=== PATIENT | female | born 1985 | race American Indian/Alaskan Native ===

== ENCOUNTER 2016-06-09 22:16 | Emergency (ER) | payer MEDICAID ==
[2016-06-09 23:33] LABS: Basophils % (Auto) 0.5 % (0.0-1.8); Mean Corpuscular HGB Conc 30 % (30-34); Mean Corpuscular Volume 74 fl (79-97); Platelet Count 152 K/mm3 (140-440); Red Blood Count 4.56 M/mm3 (3.65-5.03); Red Cell Distribution Width 15.6 % (13.2-15.2); White Blood Count 5.3 K/mm3 (4.5-11.0)
[2016-06-09 23:35] LABS: Hematocrit 33.9 % (30.3-42.9); Hemoglobin 10.2 gm/dl (10.1-14.3); Mean Corpuscular Hemoglobin 22 pg (28-32)
[2016-06-09 23:54] LABS: Anion Gap 22 mmol/L; BUN/Creatinine Ratio 16.25; Blood Urea Nitrogen 13 mg/dL (7-17); Calcium 9.5 mg/dL (8.4-10.2); Carbon Dioxide 23 mmol/L (22-30); Chloride 93.2 mmol/L (98-107); Glucose 478 mg/dL (65-100); Potassium 4.7 mmol/L (3.6-5.0); Sodium 133 mmol/L (137-145)
[2016-06-09 23:58] LABS: B-Hydroxybutyrate 0.9 mg/dL (0.2-2.8)
[2016-06-10 01:10] LABS: Bilirubin,Urine NEG (Negative); Blood,Urine NEG (Negative); Ketones,Urine NEG (Negative); Leukocyte Esterase,Urine NEG (Negative); Mucus,Urine FEW /HPF; Nitrite,Urine NEG (Negative); Protein,Urine <15 mg/dL mg/dL (Negative); Urobilinogen,Urine < 2.0 mg/dL (<2.0); WBC,Urine < 1.0 /HPF (0.0-6.0)
[2016-06-10] MEDS: BENADRYL PO ONE (07:30)
[2016-06-10] MEDS: ZOFRAN IV ONE (07:31)
[2016-06-10] MEDS: DILAUDID IV ONE ×2 (07:32→12:30)
[2016-06-10] MEDS: NACL 0.9% 1000 ML IV ONE (07:34)
--- NOTE | 2016-06-10 08:05 | Emergency Department Report ---
HPI - General Chief Complaint: Abdominal Pain Time Seen by Provider: 06/10/16 06:49 - HPI HPI: Chief complaint: Nausea vomiting diarrhea elevated sugar HPI: Patient is a 30-year-old insulin-dependent diabetic with previous history of DKA several months ago and recurrent nausea vomiting diarrhea and abdominal pain. Patient was here in March last year with similar complaints 2 today. States she's had nausea vomiting and diarrhea for the last 3 days. States every time she tries to eat something she vomits and initially she had multiple episodes of diarrhea but has slowed to 2 or 3 times a day. Patient denies fever but states she's had a productive cough with green sputum times one month. Patient denies history of smoking or hypertension. Patient takes 30 units of Lantus every night and then a sliding scale during the day. Patient states her last dose was last night of the Lantus 30 units. Mode of arrival: [private car] Source: [Patient] [old chart] Began: 3 days ago Duration: 3 days Context: Also has a history of hyperthyroidism controlled with methimazole. Patient has had kidney stones in the past requiring nephrostomy tube placement. Patient states she has not had any trouble with this for over a year. 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 - Surgical History Past Surgical History?: Yes Hx Cholecystectomy: Yes Additional Surgical History: X 3, nephrostomy tubes for hydronephrosis last was May 2014 - Social History Smoking Status: Never Smoker Substance Use Type: None - Medications Home Medications: Home Medications Medication Instructions Recorded Confirmed Last Taken Type Methimazole [Tapazole] 10 mg PO BID #60 tablet 01/28/16 06/10/16 1 Day Ago Rx 10 Insulin Lispro [HumaLOG VIAL] 12 units SQ TID #1 03/27/16 06/10/16 1 Day Ago Rx 8 Enoxaparin [Lovenox] 90 mg SUB-Q BID 06/10/16 06/10/16 Unknown History HYDROcodone/APAP 5-325 [[place] 1 each PO Q6HR PRN #7 tablet 06/10/16 Unknown Rx 5/325] Insulin Glargine [Lantus VIAL] 30 unit SUB-Q QHS 06/10/16 06/10/16 Unknown History Ondansetron [Zofran Odt] 4 mg PO Q4H PRN #10 tab.rapdis 06/10/16 Unknown Rx ED Review of Systems ROS: Stated complaint: CHEST SORENESS/COLD SX/COUGH Other details as noted in HPI ROS Constitutional: No fever ENT: No uri symptoms Cardiovascular: No chest pain Respiratory: No sob GI: See HPI : No dysuria frequency or urgency, Skin: No rash Neuro: No focal weakness or numbness Psych: No depression Paul/lymph: No edema Physical Exam - Physical Exam Vital Signs: Vital Signs 06/09/16 06/10/16 06/10/16 22:43 05:41 07:15 Temperature 98.5 F Pulse Rate 97 H 82 88 Respiratory 20 20 16 Rate Blood Pressure 139/97 129/96 Blood Pressure 128/77 [Left] O2 Sat by Pulse 100 100 100 Oximetry 06/10/16 07:32 Temperature Pulse Rate Respiratory 16 Rate Blood Pressure Blood Pressure [Left] O2 Sat by Pulse Oximetry Physical Exam: GENERAL: The patient is well-developed well-nourished . HEENT: Normocephalic. Atraumatic. Extraocular motions are intact. Patient has moist mucous membranes. NECK: Supple. No meningitic signs are noted. There is no adenopathy noted. CHEST/LUNGS: Clear to auscultation. There is no respiratory distress noted. HEART/CARDIOVASCULAR: Regular. There is no tachycardia. There is no gallop rub or murmur. ABDOMEN: Abdomen is soft, diffuse tenderness without rebound or guarding. Right flank tenderness. Patient has normal bowel sounds. There is no abdominal distention. SKIN: There is no rash. There is no edema. There is no diaphoresis. NEURO: The patient is awake, alert, and oriented. The patient is cooperative. The patient has no focal neurologic deficits. The patient has normal speech. MUSCULOSKELETAL: There is no tenderness or deformity. There is no limitation range of motion. There is no evidence of acute injury. 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 06/10/16 11:[address] Virgen from vascular surgery who is familiar with this patient. He states the most appropriate treatment is to continue anticoagulation as the risk of placing a suprarenal IVC filter outweighs the risk of a pulmonary embolus. Patient was strongly encouraged to not miss any doses of her Lovenox. 06/10/16 11:48 Patient was given Zofran and Dilaudid with significant improvement. ED Medical Decision Making - Lab Data Result diagrams: 06/09/16 23:11 06/09/16 23:11 Laboratory Tests 06/09/16 06/09/16 06/09/16 23:11 23:11 Unknown VBG pH 7.313 L POC Glucose Urine Protein <15 mg/dl Urine Glucose (UA) >=500 Urine HCG, Qual Negative Ketones 0.9 06/10/16 05:47 VBG pH POC Glucose > 500 H Urine Protein Urine Glucose (UA) Urine HCG, Qual Ketones - Radiology Data Radiology results: report reviewed (CT of the abdomen shows no QT changes. 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 Radiologist thinks there is concern for potential dislodgment resulting in a pulmonary embolus.) Critical care attestation.: If time is entered above; I have spent that time in minutes in the direct care of this critically ill patient, excluding procedure time. ED Disposition Clinical Impression: Hyperglycemia, Gastroenteritis, Renal vein thrombosis Disposition: DISCHARGED TO HOME OR SELFCARE Is pt being admited?: No Does the pt Need Aspirin: No Instructions: Abdominal Pain (ED), Acute Nausea and Vomiting (ED) Prescriptions: HYDROcodone/APAP 5-325 [[place] 5/325] 1 each PO Q6HR PRN #7 tablet PRN Reason: Pain Ondansetron [Zofran Odt] 4 mg PO Q4H PRN #10 tab.rapdis PRN Reason: Nausea And Vomiting Referrals: PRIMARY CARE, [Primary Care Provider] - 3-5 Days [facility] [Provider Group] - 3-5 Days (Follow-up with gastroenterology for further evaluation) Time of Disposition: 11:49
--- NOTE | 2016-06-10 09:46 | Cat Scan Report ---
CT ABDOMEN AND PELVIS WITH CONTRAST History: Abdominal pain. Technique: Helical CT following IV contrast. Sagittal and coronal reformatted images. Findings: Multiple previous exams were reviewed dating back to 02/28/16. Heart size is normal. The visualized lung bases are clear. Normal liver, pancreas, adrenal glands, spleen, bowel loops and appendix. The bowel loops are normal caliber and wall thickness. There is mild anterior rotation and inferior migration of the right kidney. The kidneys and collecting systems are within normal limits otherwise. Normal bladder. Cholecystectomy changes are noted. No biliary dilatation. A left renal vein stent is in position. There appears to be a thrombus which is adherent to the stent and extends superiorly in the intrahepatic IVC. This is unchanged since previous exams dating back to 02/29/16. Impression: No acute inflammatory process is appreciated. Thrombus adherent to the left renal vein stent which extends into the intrahepatic IVC as outlined above. This is unchanged. Given these findings, I feel this patient is at risk for pulmonary embolus. Please correlate with the images. Slight right renal ectopia.
[2016-06-10] MEDS ORDERED: DILAUDID ONE (12:24)
[2016-06-10 12:38] VITALS: BP 130/86
== END 2016-06-10 11:51 | disposition home or self-care (01) ==
LOC: ED 22:16
DX: E11.65 Type 2 diabetes mellitus with hyperglycemia (principal); K52.9 Noninfective gastroenteritis and colitis, unspecified; I82.3 Embolism and thrombosis of renal vein; Z90.49 Acquired absence of other specified parts of digestive tract
CPT/HCPCS: 36415; 74177; 80048; 81001; 81025; 82010; 82805; 82962; 85025; 96361; 96374; 96375; 96376; 99285; J1170; J2405; J7030; Q9967; J1815

== ENCOUNTER 2016-08-24 20:26 | Emergency (ER) | payer MEDICAID ==
[2016-08-24 21:36] LABS: Red Blood Count 5.19 M/mm3 (3.65-5.03); White Blood Count 6.7 K/mm3 (4.5-11.0)
[2016-08-24 21:37] LABS: Basophils % (Auto) 0.6 % (0.0-1.8); Eosinophils % (Auto) 0.7 % (0.0-4.3); Hematocrit 38.6 % (30.3-42.9); Hemoglobin 11.8 gm/dl (10.1-14.3); Mean Corpuscular HGB Conc 31 % (30-34); Mean Corpuscular Hemoglobin 23 pg (28-32); Mean Corpuscular Volume 74 fl (79-97); Platelet Count 181 K/mm3 (140-440); Red Cell Distribution Width 16.1 % (13.2-15.2)
[2016-08-24 21:44] LABS: Anion Gap 23 mmol/L; BUN/Creatinine Ratio 19.09; Blood Urea Nitrogen 21 mg/dL (7-17); Calcium 9.5 mg/dL (8.4-10.2); Carbon Dioxide 19 mmol/L (22-30); Chloride 90.6 mmol/L (98-107); Sodium 128 mmol/L (137-145)
[2016-08-24 22:07] LABS: Glucose 538 mg/dL (65-100)
[2016-08-24] MEDS ORDERED: NACL 0.9% 1000 ML 1,000 ML ONE (22:18)
[2016-08-24] MEDS ORDERED: DILAUDID IV ONE (23:45)
[2016-08-24] MEDS ORDERED: ZOFRAN IV ONE (23:45)
[2016-08-24] MEDS ORDERED: ERYTHROMYCIN OPHTH OINT OU ONE (23:45)
[2016-08-24] MEDS ORDERED: NACL 0.9% 1000 ML 2,000 ML IV ONE (23:47)
--- NOTE | 2016-08-24 23:47 | Emergency Department Report ---
ED Abdominal Pain HPI - General Chief Complaint: Abdominal Pain Stated Complaint: N/V/D/R EYE BLURRED VISION/WEAKNESS Time Seen by Provider: 08/24/16 23:36 Source: patient Mode of arrival: Ambulatory Limitations: No Limitations - History of Present Illness Initial Comments: This is a 30-year-old female who reports 2 day history of right-sided abdominal pain. She states it radiates somewhat to her groin. She does get increased pains with urination as well. She denies any fevers us and with this. She does report decreased appetite. No vomiting has had some nausea. No diarrhea or constipation is reported. States that she's also on the same time. Had difficulty with her right eye with redness pain and tearing and itching sensation. No trauma is reported to the right eye. She's otherwise felt well. She denies any history of allergies. She denies nasal congestion or cough. Patient does endorse having history of kidney stones in the past. States her pain feels somewhat like a kidney stone. She denies . She denies any vaginal discharge. No prior abdominal surgeries is reported. Severity scale (0 -10): 10 Improves With: nothing Worsens With: nothing - Related Data Home Medications Medication Instructions Recorded Confirmed Last Taken Enoxaparin [Lovenox] 90 mg SUB-Q BID 06/10/16 06/10/16 Unknown Insulin Glargine [Lantus VIAL] 30 unit SUB-Q QHS 06/10/16 06/10/16 Unknown Previous Rx's Medication Instructions Recorded Last Taken Type Methimazole [Tapazole] 10 mg PO BID #60 tablet 01/28/16 1 Day Ago Rx 10 Insulin Lispro [HumaLOG VIAL] 12 units SQ TID #1 03/27/16 1 Day Ago Rx 8 HYDROcodone/APAP 5-325 [[place] 1 each PO Q6HR PRN #7 tablet 06/10/16 Unknown Rx 5/325] Ondansetron [Zofran Odt] 4 mg PO Q4H PRN #10 tab.rapdis 06/10/16 Unknown Rx Erythromycin [Erythromycin Ophth 10 applic OP Q4HR #1 tube 08/25/16 Unknown Rx Oint] oxyCODONE /ACETAMINOPHEN [Percocet 1 tab PO Q4HR PRN #20 tab 08/25/16 Unknown Rx 5/325] Allergies Allergy/AdvReac Type Severity Reaction Status Date / Time ketorolac tromethamine Allergy Severe Hives Verified 08/24/16 21:06 [From Toradol] morphine Allergy Severe Hives Verified 08/24/16 21:06 ED Review of Systems ROS: Stated complaint: N/V/D/R EYE BLURRED VISION/WEAKNESS Other details as noted in HPI Comment: All other systems reviewed and negative Constitutional: denies: chills, fever Eyes: eye pain. denies: eye discharge, vision change ENT: denies: ear pain, throat pain Respiratory: denies: cough, shortness of breath, wheezing Cardiovascular: denies: chest pain, palpitations Endocrine: no symptoms reported Gastrointestinal: abdominal pain, nausea. denies: vomiting, diarrhea, constipation, hematemesis, hematochezia Genitourinary: dysuria. 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 - Surgical History Past Surgical History?: Yes Hx Cholecystectomy: Yes Additional Surgical History: X 3, nephrostomy tubes for hydronephrosis last was May 2014 - Social History Smoking Status: Never Smoker Substance Use Type: None - Medications Home Medications: Home Medications Medication Instructions Recorded Confirmed Last Taken Type Methimazole [Tapazole] 10 mg PO BID #60 tablet 01/28/16 06/10/16 1 Day Ago Rx 10 Insulin Lispro [HumaLOG VIAL] 12 units SQ TID #1 03/27/16 06/10/16 1 Day Ago Rx 8 Enoxaparin [Lovenox] 90 mg SUB-Q BID 06/10/16 06/10/16 Unknown History HYDROcodone/APAP 5-325 [[place] 1 each PO Q6HR PRN #7 tablet 06/10/16 Unknown Rx 5/325] Insulin Glargine [Lantus VIAL] 30 unit SUB-Q QHS 06/10/16 06/10/16 Unknown History Ondansetron [Zofran Odt] 4 mg PO Q4H PRN #10 tab.rapdis 06/10/16 Unknown Rx Erythromycin [Erythromycin Ophth 10 applic OP Q4HR #1 tube 08/25/16 Unknown Rx Oint] oxyCODONE /ACETAMINOPHEN [Percocet 1 tab PO Q4HR PRN #20 tab 08/25/16 Unknown Rx 5/325] ED Physical Exam - General Limitations: No Limitations General appearance: alert, in no apparent distress - Head Head exam: Present: atraumatic, normocephalic - Eye Eye exam: Present: PERRL, EOMI, other (right eye with significant injection. Conjunctivae with erythema as well. Pupils are reactive to light bilaterally. There is some clear drainage noted from the right eye. Left eye is unremarkable.) Pupils: Present: other (no periorbital erythema.) - ENT ENT exam: Present: normal exam, normal orophraynx, mucous membranes moist - Neck Neck exam: Present: normal inspection, full ROM. Absent: tenderness, meningismus, lymphadenopathy - Respiratory Respiratory exam: Present: normal lung sounds bilaterally. Absent: respiratory distress, wheezes, rales - Cardiovascular Cardiovascular Exam: Present: regular rate, normal rhythm. Absent: systolic murmur, diastolic murmur, rubs, gallop - GI/Abdominal GI/Abdominal exam: Present: soft, tenderness (right upper and lower abdomen and somewhat a diffuse pattern. Minimal left-sided abdominal tenderness however.), guarding (on right mid abdomen.), normal bowel sounds. Absent: rebound, organomegaly, pulsatile mass - Extremities Exam Extremities exam: Present: normal inspection, full ROM. Absent: tenderness, pedal edema - Back Exam Back exam: Present: normal inspection, full ROM. Absent: CVA tenderness (R), CVA tenderness (L) - Neurological Exam Neurological exam: Present: alert, oriented X3 - Psychiatric Psychiatric exam: Present: normal affect, normal mood - Skin Skin exam: Present: warm, dry, intact, normal color. Absent: rash ED Course Vital Signs 08/24/16 08/25/16 08/25/16 20:44 00:00 00:29 Temperature 98.5 F Pulse Rate 117 H Respiratory 18 18 18 Rate Blood Pressure 117/90 Blood Pressure 117/90 [Left] O2 Sat by Pulse 100 98 Oximetry 08/25/16 05:01 Temperature 98.8 F Pulse Rate 77 Respiratory 18 Rate Blood Pressure Blood Pressure 119/82 [Left] O2 Sat by Pulse 99 Oximetry - Reevaluation(s) Reevaluation #1: 08/25/16 01:41 I have reviewed the patient's lab studies. They are essentially unremarkable. Her sugars are noted to be quite elevated. She's been given IV fluids as well as insulin for this. I am a bit perplexed by the etiology of her abdominal pain. Her urine does not show root red blood cells. Her presentation doesn't seem consistent with kidney stone either. I'm inclined to get a CT study with contrast to rule out other pathology as well. Her labs are all noted to be normal. Reevaluation #2: 08/25/16 05:58 CT was performed. I was surprised to see the left renal vein thrombosis extending to the IVC. I did note as well that she's had numerous CTs as well as numerous evaluations studies regarding her left renal thrombosis and her kidneys in general. Her creatinine in the pew and appropriate here. There is a small amount of proteinuria. This does appear to be all chronic in nature. I did request and the patient regarding these findings and she indicates that she is currently on Lovenox. She was initially on liquids but her insurance will cover it. The left renal thrombosis on the left and her pain is on the right. I do not feel the CT gives an answer as far as the etiology of her discomfort. Frankly am a little perplexed about causing her pain as well. Urinalysis is unremarkable in general. No kidney stones were noted on examination. Patient still does have some mild tenderness to palpation on the right side. She did require a lot of 3 while here. She was here for several hours however. I did have a long conversation with the patient in regards to her workup and however not specifically finding an etiology for her discomforts. I do feel she is safe for home and given my lack of findings and my low suspicion for surgical pathology at this time. I did encourage her to follow up with her primary doctor for continued evaluation and consideration. I did focus on his sugars as well. Patient was given total of 2 L normal saline as well as insulin 1. As it come down to the appropriate range with these interventions. Do not suspect DKA. She appears very comfortable and breathing very comfortably as well. CO2 is normal as well. 08/25/16 06:00 ED Medical Decision Making - Lab Data Result diagrams: 08/24/16 21:21 08/24/16 21:21 Critical care attestation.: If time is entered above; I have spent that time in minutes in the direct care of this critically ill patient, excluding procedure time. ED Disposition Clinical Impression: Thrombosis of left renal vein Abdominal pain Qualifiers: Abdominal location: right lower quadrant Qualified Code(s): R10.31 - Right lower quadrant pain Conjunctivitis Qualifiers: Conjunctivitis type: acute Acute conjunctivitis type: unspecified Laterality: right Qualified Code(s): H10.31 - Unspecified acute conjunctivitis, right eye Disposition: DISCHARGED TO HOME OR SELFCARE Is pt being admited?: No Does the pt Need Aspirin: No Condition: Stable Instructions: Conjunctivitis (ED) Additional Instructions: Follow with your doctor for further evaluation and continued care regarding her renal vein thrombosis. Continue with her Lovenox injections. Take pain medication as needed. Be aware the pain medication may make you constipated. Eat a bland diet. Use the erythromycin ointment small amount in the eye every 4 hours while awake. Prescriptions: Erythromycin [Erythromycin Ophth Oint] 10 applic OP Q4HR #1 tube oxyCODONE /ACETAMINOPHEN [Percocet 5/325] 1 tab PO Q4HR PRN #20 tab PRN Reason: Pain Referrals: PRIMARY CARE, [Primary Care Provider] - 3-5 Days Forms: Work/School Release Form(ED) Time of Disposition: 04:59
[2016-08-24] MEDS ORDERED: TETRACAINE 0.5% OU PRN (23:50)
[2016-08-25 00:42] LABS: Albumin 4.4 g/dL (3.9-5)
[2016-08-25 00:58] LABS: Alanine Aminotransferase 6 units/L (7-56); Albumin/Globulin Ratio 1.1 %; Alkaline Phosphatase 89 units/L (35-129); Bilirubin,Direct < 0.2 mg/dL (0-0.2); Bilirubin,Indirect 0.4 mg/dL; Lipase 11 units/L (13-60); Total Protein 8.3 g/dL (6.3-8.2)
[2016-08-25 01:32] LABS: Bilirubin,Urine NEG (Negative); Blood,Urine SM (Negative); Ketones,Urine 20 mg/dL (Negative); Leukocyte Esterase,Urine TR (Negative); Mucus,Urine FEW /HPF; Nitrite,Urine NEG (Negative); Urobilinogen,Urine < 2.0 mg/dL (<2.0)
[2016-08-25] MEDS ORDERED: NACL ONE (02:44)
[2016-08-25] MEDS ORDERED: DILAUDID ONE (04:26)
--- NOTE | 2016-08-25 04:29 | Cat Scan Report ---
FINAL REPORT PROCEDURE: CT ABDOMEN PELVIS W CON TECHNIQUE: Computerized axial tomography of the abdomen and pelvis was performed after the IV injection of iodinated nonionic contrast. HISTORY: R sided abd pains COMPARISON: 06/10/2016 FINDINGS: Visualized lower thorax: No significant abnormality. Liver: Normal size and attenuation. Spleen: There is a partially calcified low-density mass in the spleen unchanged from prior study.. Gallbladder and biliary system: There has been a cholecystectomy. The bile ducts are normal in caliber.. Pancreas: Normal. Adrenals: Normal. Kidneys: There is malrotation of the right kidney. There are left intrarenal vascular calcifications. There are no kidney stones. There is no hydronephrosis. There are no kidney stones. There is no hydronephrosis. 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 These are chronic changes.. GI tract: There is no bowel obstruction, colitis or enteritis. The appendix is normal. There is focal thickening of the stomach antrum which is nonspecific. This could be contraction or gastritis.. Lymph nodes and mesentery: Normal. Vasculature: The aorta is normal in caliber.. Bladder: Normal. Reproductive organs: The uterus and ovaries are unremarkable.. Peritoneum: There is no ascites or free air, abscess or adenopathy.. Musculoskeletal structures: No significant abnormality. Other: There is a small ventral hernia containing fat only.. 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 There has been a cholecystectomy. The bile ducts are normal in caliber.. There is malrotation of the right kidney. There are left intrarenal vascular calcifications. There are no kidney stones. There is no hydronephrosis. There are no kidney stones. There is no hydronephrosis. 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 These are chronic changes.. There is no bowel obstruction, colitis or enteritis. The appendix is normal. There is focal thickening of the stomach antrum which is nonspecific. This could be contraction or gastritis.. There is no ascites or free air, abscess or adenopathy.. There is a small ventral hernia containing fat only..
[2016-08-25] MEDS ORDERED: DILAUDID IV ONE (04:40)
[2016-08-25 05:02] VITALS: BP 119/82
[2016-08-30 00:54] LABS: B-Hydroxybutyrate 1.8 mmol/L (0.2 - 0.28)
== END 2016-08-25 05:22 | disposition home or self-care (01) ==
LOC: ED 20:26
DX: I82.3 Embolism and thrombosis of renal vein (principal); H10.31 Unspecified acute conjunctivitis, right eye; E11.9 Type 2 diabetes mellitus without complications; Z90.49 Acquired absence of other specified parts of digestive tract; Z79.4 Long term (current) use of insulin; Z88.6 Allergy status to analgesic agent
CPT/HCPCS: 36415; 74177; 80048; 80074; 81001; 81025; 82010; 82805; 82962; 83690; 85025; 96374; 96375; 96376; 99284; J1170; J2405; J7030; Q9967; J1815

== ENCOUNTER 2016-11-05 01:18 | Emergency (ER) | payer MEDICAID ==
[2016-11-05 01:48] LABS: Basophils % (Auto) 0.9 % (0.0-1.8); Eosinophils % (Auto) 2.5 % (0.0-4.3); Hematocrit 34.8 % (30.3-42.9); Hemoglobin 10.9 gm/dl (10.1-14.3); Mean Corpuscular HGB Conc 31 % (30-34); Mean Corpuscular Volume 74 fl (79-97); Platelet Count 193 K/mm3 (140-440); Red Blood Count 4.68 M/mm3 (3.65-5.03); Red Cell Distribution Width 15.6 % (13.2-15.2); White Blood Count 6.2 K/mm3 (4.5-11.0)
[2016-11-05 01:58] LABS: Mean Corpuscular Hemoglobin 23 pg (28-32)
[2016-11-05 02:13] LABS: Alanine Aminotransferase 7 units/L (7-56); Albumin 3.8 g/dL (3.9-5); Alkaline Phosphatase 57 units/L (35-129); Anion Gap 20 mmol/L; Blood Urea Nitrogen 19 mg/dL (7-17); Calcium 9.2 mg/dL (8.4-10.2); Carbon Dioxide 22 mmol/L (22-30); Chloride 92.7 mmol/L (98-107); Glucose 437 mg/dL (65-100); Potassium 4.4 mmol/L (3.6-5.0); Sodium 130 mmol/L (137-145); Total Protein 7.6 g/dL (6.3-8.2)
[2016-11-05 03:05] LABS: Bilirubin,Urine NEG (Negative); Blood,Urine NEG (Negative); Ketones,Urine NEG (Negative); Leukocyte Esterase,Urine NEG (Negative); Nitrite,Urine NEG (Negative); Protein,Urine <15 mg/dL mg/dL (Negative); Urobilinogen,Urine < 2.0 mg/dL (<2.0); WBC,Urine < 1.0 /HPF (0.0-6.0)
[2016-11-05] MEDS ORDERED: NACL 0.9% 1000 ML 1,000 ML IV ONE (08:13)
[2016-11-05] MEDS ORDERED: ZOFRAN IV ONE (08:13)
--- NOTE | 2016-11-05 08:16 | Emergency Department Report ---
HPI - General Chief Complaint: Abdominal Pain Time Seen by Provider: 11/05/16 08:00 - HPI HPI: This is a 31-year-old Afro-[place] female presents to the emergency department , dropped off by her father, with a one-week history of increased urination, nausea and vomiting, lower abdominal and lower back pain. She denies any problems with bowel movements, numbness or paresthesias or any neurological deficits. She tried some Tylenol for her discomfort without any relief. She denies any trauma. No recent travel or sick contacts at home. Her primary care physician is Dr. Jackson that she has not seen them regarding symptoms. She has a past nuchal history of insulin-dependent diabetes, DVT, kidney stones, hypothyroidism. She has a past surgical history of cholecystectomy, 3, and previous nephrostomy tubes for hydronephrosis. 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 - Surgical History Past Surgical History?: Yes Hx Cholecystectomy: Yes Additional Surgical History: X 3, nephrostomy tubes for hydronephrosis last was May 2014 - Social History Smoking Status: Never Smoker Substance Use Type: None - Medications Home Medications: Home Medications Medication Instructions Recorded Confirmed Last Taken Type Methimazole [Tapazole] 10 mg PO BID #60 tablet 01/28/16 06/10/16 1 Day Ago Rx 10 Insulin Lispro [HumaLOG VIAL] 12 units SQ TID #1 03/27/16 06/10/16 1 Day Ago Rx 8 Enoxaparin [Lovenox] 90 mg SUB-Q BID 06/10/16 06/10/16 Unknown History Insulin Glargine [Lantus VIAL] 30 unit SUB-Q QHS 06/10/16 06/10/16 Unknown History Erythromycin [Erythromycin Ophth 10 applic OP Q4HR #1 tube 08/25/16 Unknown Rx Oint] oxyCODONE /ACETAMINOPHEN [Percocet 1 tab PO Q4HR PRN #20 tab 08/25/16 Unknown Rx 5/325] HYDROcodone/APAP 5-325 [[place] 1 each PO Q6HR PRN #7 tablet 11/05/16 Unknown Rx 5-325 mg TAB] Ondansetron [Zofran Odt] 4 mg PO Q4H PRN #10 tab.rapdis 11/05/16 Unknown Rx ED Review of Systems ROS: Stated complaint: ABD PAIN/EMESIS Other details as noted in HPI Comment: All other systems reviewed and negative Constitutional: denies: chills, fever Eyes: denies: eye pain, eye discharge, vision change ENT: denies: ear pain, throat pain Respiratory: denies: cough, shortness of breath, wheezing Cardiovascular: denies: chest pain, palpitations Gastrointestinal: abdominal pain, nausea, vomiting Genitourinary: dysuria, frequency. denies: discharge Musculoskeletal: back pain. denies: arthralgia Skin: denies: rash, lesions Neurological: denies: headache, weakness, paresthesias Physical Exam - Physical Exam Vital Signs: Vital Signs 11/05/16 11/05/16 01:22 08:06 Temperature 98.9 F Pulse Rate 87 Respiratory 20 20 Rate Blood Pressure 125/87 O2 Sat by Pulse 100 100 Oximetry Physical Exam: GENERAL: The patient is well-developed well-nourished. HEENT: Normocephalic. Atraumatic. Extraocular motions are intact. Patient has moist mucous membranes. Pupils equal reactive to light bilaterally. NECK: Supple. Trachea is midline. CHEST/LUNGS: Clear to auscultation. There is no respiratory distress noted. HEART/CARDIOVASCULAR: Regular. There is no tachycardia. There is no gallop rub or murmur. ABDOMEN: Abdomen is soft. There is no tenderness to palpation of the abdomen. No guarding or rebound tenderness. No peritoneal signs. Patient has normal bowel sounds. There is no abdominal distention. SKIN: Skin is warm and dry. NEURO: The patient is awake, alert, and oriented. The patient is cooperative. The patient has no focal neurologic deficits. The patient has normal speech. Cranial nerves II through XII grossly intact. MUSCULOSKELETAL: There is no tenderness or deformity. There is no limitation range of motion. There is no evidence of acute injury. BACK: No midline thoracic or lumbar tenderness to palpation or deformity. ED Course Vital Signs 11/05/16 11/05/16 01:22 08:06 Temperature 98.9 F Pulse Rate 87 Respiratory 20 20 Rate Blood Pressure 125/87 O2 Sat by Pulse 100 100 Oximetry ED Medical Decision Making - Lab Data Result diagrams: 11/05/16 01:28 11/05/16 01:28 - Radiology Data Radiology results: report reviewed, image reviewed interpreted by me: Abdominal x-ray shows nonspecific nonobstructive bowel gas. 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 Transvaginal/pelvic ultrasound does not show any signs of torsion. There is a small left ovarian cyst. - Medical Decision Making 31-year-old female presents the emergency department with a one-week history of nausea, vomiting, back pain lower abdominal and pelvic discomfort and increased urination. Urinalysis does not show any urinary tract infection and the patient is not . Blood work shows hyperglycemia with some pseudohyponatremia. However the patient does not appear to have diabetic ketoacidosis or HHNK. She was given a liter of IV fluid and some insulin and her blood sugar came down to 240. The rest the patient's labs were unremarkable for any etiology of the patient's symptoms and she does not appear to have any significant dehydration. She was given a dose of Zofran and pain medication. Abdominal x-ray shows nonspecific nonobstructive bowel gas. Renal ultrasound was done second or 2 history of kidney stones and some back and abdominal pain but there is no sign of any ureter stones only a questionable right intrarenal stone. Otherwise as was a normal examination. Patient still had some lower abdominal and/or pelvic discomfort so a transvaginal/pelvic ultrasound was also done to rule out torsion. There was no torsion and there is a small left ovarian cyst. She appears safer being discharged home at this time. Vital signs stable throughout ED course. She was given a prescription for Zofran and pain medication and encouraged to follow up with her primary care physician. She will return to the ER with any worsening of her symptoms or any acute distress. Despite the patient's back pain, there was no midline tenderness, step-off or deformity. There is no focal, motor or sensory deficits in her cranial nerves are intact. She appears low suspicion for any of the emergent back conditions such as cauda equina, cord compression syndrome or epidural abscess. - Differential Diagnosis muscle spasm, , UTI, fibroids, cyst Critical Care Time: No Critical care attestation.: If time is entered above; I have spent that time in minutes in the direct care of this critically ill patient, excluding procedure time. ED Disposition Clinical Impression: Pelvic pain Back pain Qualifiers: Back pain location: low back pain Chronicity: unspecified Back pain laterality : bilateral Sciatica presence: without sciatica Qualified Code(s): M54.5 - Low back pain Nausea & vomiting Qualifiers: Vomiting type: unspecified Vomiting Intractability: non-intractable Qualified Code(s): R11.2 - Nausea with vomiting, unspecified Disposition: TO HOME OR SELFCARE Is pt being admited?: No Condition: Stable Instructions: Acute Nausea and Vomiting (ED), Abdominal Pain (ED), Back Pain ( ED) Additional Instructions: These follow-up with your primary care physician in the next few days. Return to the emergency department with any worsening of your symptoms or any acute distress. You've been prescribed a medication that is sedating. Therefore this medication cannot be mixed with alcohol, or taken prior to driving, working, or being responsible for children. Prescriptions: HYDROcodone/APAP 5-325 [[place] 5-325 mg TAB] 1 each PO Q6HR PRN #7 tablet PRN Reason: Pain Ondansetron [Zofran Odt] 4 mg PO Q4H PRN #10 tab.rapdis PRN Reason: Nausea And Vomiting Referrals: PRIMARY CARE, [Primary Care Provider] - 3-5 Days Time of Disposition: 12:28
--- NOTE | 2016-11-05 08:45 | XRay Report ---
Abdomen 2 views: History: Abdominal pain. Findings: A fluid level in stomach. No distention of small and large bowel. No wall thickening. Stool in colon. No radiopaque calculus or abnormal calcification. Impression Essentially negative abdomen.
[2016-11-05] MEDS ORDERED: DILAUDID IV ONE ×2 (08:54→11:25)
--- NOTE | 2016-11-05 09:29 | Ultrasound Report ---
Renal ultrasound: Back pain; history of hydronephrosis and stone. Examination is technically somewhat compromised. The right renal length is approximately 9.1 cm. A couple of central echodensities are noted these may represent calculi but there is no shadowing and no hydronephrosis. No renal mass noted. The left renal length is approximately 9.8 cm. No renal mass and no calculus. No hydronephrosis. Imaging of the urinary bladder is grossly unremarkable. Imaging of the IVC demonstrates a filling defect consistent with nonobstructing thrombus. This has been present since at least the CT scan on August 25 where it was noted to emanate from left renal vein. Impressions: 1. Questionable nonobstructing right renal calculus. 2. 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
--- NOTE | 2016-11-05 11:51 | Ultrasound Report ---
Pelvic ultrasound: Pelvic pain. Endovaginal and transabdominal imaging demonstrates an anteverted uterus measuring 4.4 x 5.4 x 9.5 cm. The transverse images suggest a bicornuate uterus. The myometrium is homogeneous. The left endometrium measures 4.2 mm in thickness in the right endometrium measures 5.7 mm. Both both left and right endometrium appear unremarkable. The left ovary measures 3.3 cm and contains a 2.9 cm simple cyst. There is a normal Doppler flow pattern. The right ovary measures 2.4 cm containing a small follicle and normal Doppler flow pattern. No free fluid. Impressions: 1. Bicornuate uterus. 2. Left ovarian cyst.
[2016-11-05 12:06] VITALS: BP 124/82
== END 2016-11-05 12:06 | disposition home or self-care (01) ==
LOC: ED 01:18
DX: M54.5 Low back pain (principal); R11.2 Nausea with vomiting, unspecified; R10.2 Pelvic and perineal pain; E11.9 Type 2 diabetes mellitus without complications; Z86.718 Personal history of other venous thrombosis and embolism; Z79.4 Long term (current) use of insulin
CPT/HCPCS: 36415; 74020; 76770; 76830; 80053; 81001; 82805; 82962; 84703; 85025; 93975; 96361; 96374; 96375; 96376; 99284; J1170; J2405; J7030; J1815

== ENCOUNTER 2017-01-13 02:01 | Emergency (ER) | payer MEDICAID ==
[2017-01-13 03:10] LABS: Anion Gap 20 mmol/L; Blood Urea Nitrogen 12 mg/dL (7-17); Carbon Dioxide 20 mmol/L (22-30); Chloride 89.9 mmol/L (98-107); Potassium 4.9 mmol/L (3.6-5.0); Sodium 125 mmol/L (137-145)
[2017-01-13 03:43] LABS: Glucose 568 mg/dL (65-100)
[2017-01-13 03:46] LABS: Basophils % (Auto) 0.9 % (0.0-1.8); Eosinophils % (Auto) 1.6 % (0.0-4.3); Hematocrit 35.8 % (30.3-42.9); Hemoglobin 11.1 gm/dl (10.1-14.3); Mean Corpuscular HGB Conc 31 % (30-34); Mean Corpuscular Volume 75 fl (79-97); Red Blood Count 4.78 M/mm3 (3.65-5.03); Red Cell Distribution Width 15.8 % (13.2-15.2); White Blood Count 6.5 K/mm3 (4.5-11.0)
[2017-01-13 03:49] LABS: Mean Corpuscular Hemoglobin 23 pg (28-32)
[2017-01-13 04:00] LABS: Platelet Count 164 K/mm3 (140-440)
[2017-01-13 04:27] LABS: Bilirubin,Urine NEG (Negative); Blood,Urine SM (Negative); Ketones,Urine NEG (Negative); Leukocyte Esterase,Urine NEG (Negative); Mucus,Urine FEW /HPF; Nitrite,Urine NEG (Negative); Protein,Urine <15 mg/dL mg/dL (Negative); Urobilinogen,Urine < 2.0 mg/dL (<2.0)
[2017-01-13] MEDS ORDERED: NACL 0.9% 1000 ML 1,000 ML IV ONE ×2 (04:31→05:43)
[2017-01-13] MEDS ORDERED: DILAUDID IV ONE ×2 (04:33→06:44)
[2017-01-13] MEDS ORDERED: ZOFRAN IV ONE (04:34)
--- NOTE | 2017-01-13 07:04 | Emergency Department Report ---
HPI - General Chief Complaint: Hyperglycemia Time Seen by Provider: 01/13/17 04:04 - HPI HPI: 31-year-old female presents to the emergency department with complaint of a few days of some lower abdominal and low back pain. She also says that her blood sugar has been elevated despite the fact that she says she has been compliant with her insulin medication. Prior to the symptoms starting she has been dealing with about 1 week of upper respiratory type symptoms. Her primary care physician is a Dr. Jackson but she has not seen him regarding her symptoms. She also has a history of previous DVT, kidney stones, hypothyroidism. No recent travel or sick contacts at home. 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 - Surgical History Past Surgical History?: Yes Hx Cholecystectomy: Yes Additional Surgical History: X 3, nephrostomy tubes for hydronephrosis last was May 2014 - Social History Smoking Status: Never Smoker Substance Use Type: None - Medications Home Medications: Home Medications Medication Instructions Recorded Confirmed Last Taken Type Methimazole [Tapazole] 10 mg PO BID #60 tablet 01/28/16 06/10/16 1 Day Ago Rx 10 Insulin Lispro [HumaLOG VIAL] 12 units SQ TID #1 03/27/16 06/10/16 1 Day Ago Rx 8 Enoxaparin [Lovenox] 90 mg SUB-Q BID 06/10/16 06/10/16 Unknown History Insulin Glargine [Lantus VIAL] 30 unit SUB-Q QHS 06/10/16 06/10/16 Unknown History Erythromycin [Erythromycin Ophth 10 applic OP Q4HR #1 tube 08/25/16 Unknown Rx Oint] oxyCODONE /ACETAMINOPHEN [Percocet 1 tab PO Q4HR PRN #20 tab 08/25/16 Unknown Rx 5/325] Ondansetron [Zofran Odt] 4 mg PO Q4H PRN #10 tab.rapdis 11/05/16 Unknown Rx HYDROcodone/APAP 5-325 [[place] 1 each PO Q6HR PRN #7 tablet 01/13/17 Unknown Rx 5-325 mg TAB] ED Review of Systems ROS: Stated complaint: LOWER BACK & ABD PAIN, VOMITING, HEADACHE Other details as noted in HPI Comment: All other systems reviewed and negative Constitutional: denies: chills, fever Eyes: denies: eye pain, eye discharge, vision change ENT: denies: ear pain, throat pain Respiratory: denies: cough, shortness of breath, wheezing Cardiovascular: denies: chest pain, palpitations Gastrointestinal: abdominal pain. denies: nausea, diarrhea Genitourinary: denies: urgency, dysuria, discharge Musculoskeletal: back pain. denies: joint swelling, arthralgia Skin: denies: rash, lesions Neurological: denies: headache, weakness, paresthesias Physical Exam - Physical Exam Vital Signs: Vital Signs 01/13/17 01/13/17 01/13/17 02:07 04:35 04:47 Temperature 98.3 F 98.5 F Pulse Rate 99 H 84 Respiratory 20 20 20 Rate Blood Pressure 138/88 Blood Pressure 142/88 [Left] O2 Sat by Pulse 100 100 Oximetry 01/13/17 06:53 Temperature Pulse Rate Respiratory 18 Rate Blood Pressure Blood Pressure [Left] O2 Sat by Pulse Oximetry Physical Exam: GENERAL: The patient is well-developed well-nourished. HENT: Normocephalic. Atraumatic. Patient has moist mucous membranes. EYES: Extraocular motions are intact. Pupils equal reactive to light bilaterally. NECK: Supple. Trachea is midline. CHEST/LUNGS: Clear to auscultation. There is no respiratory distress noted. HEART/CARDIOVASCULAR: Regular. There is no tachycardia. There is no gallop rub or murmur. ABDOMEN: Abdomen is soft. Mild generalized tenderness to palpation of the abdomen. No guarding or rebound tenderness. Patient has normal bowel sounds. There is no abdominal distention. SKIN: Skin is warm and dry. NEURO: The patient is awake, alert, and oriented. The patient is cooperative. The patient has no focal neurologic deficits. The patient has normal speech. MUSCULOSKELETAL: There is no tenderness or deformity. There is no limitation range of motion. There is no evidence of acute injury. ED Course Vital Signs 01/13/17 01/13/17 01/13/17 02:07 04:35 04:47 Temperature 98.3 F 98.5 F Pulse Rate 99 H 84 Respiratory 20 20 20 Rate Blood Pressure 138/88 Blood Pressure 142/88 [Left] O2 Sat by Pulse 100 100 Oximetry 01/13/17 06:53 Temperature Pulse Rate Respiratory 18 Rate Blood Pressure Blood Pressure [Left] O2 Sat by Pulse Oximetry ED Medical Decision Making - Lab Data Result diagrams: 01/13/17 02:36 01/13/17 02:36 - Radiology Data Radiology results: image reviewed interpreted by me: X-ray of the abdomen does not show any acute process. Nonobstructive nonspecific bowel gas. - Medical Decision Making 31-year-old female who is insulin-dependent diabetic presents with elevated blood sugar and some abdominal discomfort. Her blood sugar is elevated at about 500 when she arrives but she does not appear to be in diabetic ketoacidosis as there is no acidosis and no significant elevation in her anion gap. She was given IV insulin and IV fluid resuscitation and prior to discharge her blood sugar was down to about 140. The rest of labs are unremarkable. Abdominal x-ray does not show any acute process. She has a history of multiple visits for similar symptoms including the abdominal pain and has had close to 10 CTs of the abdomen and pelvis over the past few years. She does not have a toxic or rigid abdomen and therefore did not feel that any further imaging was necessary. She was given pain control and appeared comfortable. Vital signs stable including being afebrile. She was not and there is no urinary tract infection. She was encouraged to follow up with the primary care doctor in the next few days. She also had some complaint of back pain but there was no problem with bowel or bladder, numbness or paresthesias or any neurological deficits and she appears low suspicion for any of the emergent condition such as cauda equina, epidural abscess or cord compression syndrome. - Differential Diagnosis DKA, UTI, , diverticulitis Critical Care Time: No Critical care attestation.: If time is entered above; I have spent that time in minutes in the direct care of this critically ill patient, excluding procedure time. ED Disposition Clinical Impression: Abdominal pain Qualifiers: Abdominal location: generalized Qualified Code(s): R10.84 - Generalized abdominal pain Diabetes mellitus, insulin dependent (IDDM), uncontrolled Qualifiers: Diabetes mellitus complication status: with hyperglycemia Qualified Code(s): E10.65 - Type 1 diabetes mellitus with hyperglycemia Back pain Qualifiers: Back pain location: low back pain Chronicity: unspecified Back pain laterality : bilateral Sciatica presence: without sciatica Qualified Code(s): M54.5 - Low back pain Disposition: TO HOME OR SELFCARE Is pt being admited?: No Condition: Stable Instructions: Abdominal Pain (ED), Back Pain (ED), Diabetic Hyperglycemia (ED) Additional Instructions: Please follow-up with your primary care physician in the next few days. Return to the emergency Department with any worsening of your symptoms or any acute distress. Try and stay away from foods that are high in carbohydrates, starches and sugars to help with your blood sugar. Keep a blood sugar log. Prescriptions: HYDROcodone/APAP 5-325 [[place] 5-325 mg TAB] 1 each PO Q6HR PRN #7 tablet PRN Reason: Pain Referrals: EBENEZER GOMES [Other] - [facility] Time of Disposition: 07:06
--- NOTE | 2017-01-13 07:16 | XRay Report ---
Abdomen 2 views: History: Abdominal pain. Findings: No free intraperitoneal air. No bowel distention or wall thickening. Minimal stool in colon. No radiopaque calculus or abnormal calcification. Impression: Essentially negative abdomen.
[2017-01-13 09:01] VITALS: BP 129/87
== END 2017-01-13 08:40 | disposition home or self-care (01) ==
LOC: ED 02:01
DX: R10.84 Generalized abdominal pain (principal); E10.65 Type 1 diabetes mellitus with hyperglycemia; M54.5 Low back pain; I82.409 Acute embolism and thrombosis of unspecified deep veins of unspecified lower extremity; Z79.4 Long term (current) use of insulin; Z90.49 Acquired absence of other specified parts of digestive tract; Z98.890 Other specified postprocedural states
CPT/HCPCS: 36415; 74020; 80048; 81001; 82805; 82962; 84703; 85025; 96361; 96374; 96375; 96376; 99284; J1170; J2405; J7030; J1815

== ENCOUNTER 2017-01-25 12:18 | Emergency (ER) | payer MEDICAID ==
--- NOTE | 2017-01-25 12:59 | Emergency Department Report ---
Stated Complaint: BG HIGH/RT ABD PAIN/LWR BACK PAIN Time Seen by Provider: 01/25/17 12:57 - HPI History of Present Illness: PT c/o high blood glucose, nausea and abd pain x 3 days - ROS Review of Systems: bg reading "high" at home + nausea + abd pain - Exam Physical Exam: pt is alert and appropriate gcs 15 steady gait noted MSE screening note: Focused history and physical exam performed. Due to findings the following was ordered: labs ED Disposition for MSE Condition: Stable
[2017-01-25 13:22] LABS: Basophils % (Auto) 0.4 % (0.0-1.8); Eosinophils % (Auto) 0.8 % (0.0-4.3); Hematocrit 36.7 % (30.3-42.9); Hemoglobin 11.3 gm/dl (10.1-14.3); Mean Corpuscular HGB Conc 31 % (30-34); Mean Corpuscular Volume 74 fl (79-97); Platelet Count 182 K/mm3 (140-440); Red Blood Count 4.95 M/mm3 (3.65-5.03); Red Cell Distribution Width 15.6 % (13.2-15.2); White Blood Count 9.3 K/mm3 (4.5-11.0)
[2017-01-25 13:47] LABS: Mean Corpuscular Hemoglobin 23 pg (28-32)
[2017-01-25 14:02] LABS: Alanine Aminotransferase 7 units/L (7-56); Albumin 3.9 g/dL (3.9-5); Albumin/Globulin Ratio 0.9 %; Alkaline Phosphatase 80 units/L (35-129); Anion Gap 25 mmol/L; BUN/Creatinine Ratio 20; Blood Urea Nitrogen 18 mg/dL (7-17); Calcium 9.2 mg/dL (8.4-10.2); Carbon Dioxide 19 mmol/L (22-30); Chloride 91.2 mmol/L (98-107); Lipase 14 units/L (13-60); Potassium 5.1 mmol/L (3.6-5.0); Sodium 130 mmol/L (137-145); Total Protein 8.4 g/dL (6.3-8.2)
[2017-01-25 14:30] LABS: Glucose 588 mg/dL (65-100)
[2017-01-25 14:34] LABS: Bilirubin,Urine NEG (Negative); Blood,Urine SM (Negative); Ketones,Urine 80 mg/dL (Negative); Leukocyte Esterase,Urine NEG (Negative); Mucus,Urine FEW /HPF; Nitrite,Urine NEG (Negative); Protein,Urine <15 mg/dL mg/dL (Negative); Urobilinogen,Urine < 2.0 mg/dL (<2.0)
[2017-01-25] MEDS ORDERED: NACL 0.9% 1000 ML 1,000 ML IV ONE ×2 (14:52→17:36)
[2017-01-25] MEDS ORDERED: ZOFRAN IV ONE (18:45)
[2017-01-25] MEDS ORDERED: DEMEROL IV PRN (18:45)
[2017-01-25] MEDS ORDERED: BENADRYL ONE (19:54)
--- NOTE | 2017-01-25 20:05 | Cat Scan Report ---
FINAL REPORT PROCEDURE: CT ABDOMEN PELVIS W CON TECHNIQUE: Computerized axial tomography of the abdomen and pelvis was performed after the IV injection of iodinated nonionic contrast. HISTORY: abdominal pain COMPARISON: CT exam dated August 25, 2016 FINDINGS: Partially calcified mass in the inferior pole of the spleen is unchanged some prior study and may be a hamartoma. It measures 1.8 cm in greatest dimension no focal hepatic abnormality is seen. Patient has had prior cholecystectomy. Accessory splenule is seen adjacent to the tail of the pancreas. No pancreatic abnormality is seen. The adrenal glands and abdominal aorta are normal in size. Right kidney is malrotated. Possible 2 millimeter stone is seen in the lower pole of the left kidney but this may be a vascular calcification. There is mild fullness of the left renal pelvis and left ureter without hydronephrosis. This may be from crossing vessel in the pelvis. Chronic calcification is seen in the left renal vein and IVC. There is suspicion for noncalcified thrombus within the IVC superior to the level of the renal veins. It is similar in appearance to prior study. No adnexal masses are seen. There is likely a bicornuate uterus. Bladder is decompressed and not well evaluated. Phleboliths in the pelvis are similar to prior study. No free pelvic fluid is seen. Normal appendix is seen. There is no evidence of bowel obstruction. IMPRESSION: There is new mild fullness of the left renal pelvis and left ureter into the region of the mid pelvis. This is a changed appearance since prior study and could be due to a crossing vessel in the pelvis. There may be a nonobstructing 2 millimeter stone in the lower pole of the left kidney. Partially calcified thrombus in the left renal vein and IVC appears unchanged since prior study.
[2017-01-25] MEDS ORDERED: BENADRYL IV ONE (20:16)
[2017-01-25] MEDS ORDERED: DILAUDID IV ONE (21:15)
[2017-01-25] MEDS ORDERED: CLARITIN PO ONE (22:31)
[2017-01-26 00:39] LABS: BUN/Creatinine Ratio 18; Blood Urea Nitrogen 14 mg/dL (7-17); Calcium 8.6 mg/dL (8.4-10.2); Carbon Dioxide 18 mmol/L (22-30); Chloride 98.9 mmol/L (98-107); Glucose 302 mg/dL (65-100); Potassium 4.7 mmol/L (3.6-5.0); Sodium 135 mmol/L (137-145)
[2017-01-26 00:47] LABS: Anion Gap 23 mmol/L
--- NOTE | 2017-01-26 02:04 | Emergency Department Report ---
ED Abdominal Pain HPI - General Chief Complaint: Hyperglycemia Stated Complaint: BG HIGH/RT ABD PAIN/LWR BACK PAIN Time Seen by Provider: 01/25/17 12:57 Source: patient Mode of arrival: Ambulatory Limitations: No Limitations - History of Present Illness MD Complaint: abdominal pain -: Gradual, days(s) (4) Location: RUQ, RLQ Radiation: none Migration to: no migration Severity: moderate Severity scale (0 -10): 5 Quality: cramping, sharp Consistency: constant Improves With: eating, vomiting Worsens With: movement Associated Symptoms: denies other symptoms, nausea, vomiting. denies: diarrhea - Related Data Home Medications Medication Instructions Recorded Confirmed Last Taken Enoxaparin [Lovenox] 90 mg SUB-Q BID 06/10/16 06/10/16 Unknown Insulin Glargine [Lantus VIAL] 30 unit SUB-Q QHS 06/10/16 06/10/16 Unknown Previous Rx's Medication Instructions Recorded Last Taken Type Methimazole [Tapazole] 10 mg PO BID #60 tablet 01/28/16 1 Day Ago Rx 10 Insulin Lispro [HumaLOG VIAL] 12 units SQ TID #1 03/27/16 1 Day Ago Rx 8 Erythromycin [Erythromycin Ophth 10 applic OP Q4HR #1 tube 08/25/16 Unknown Rx Oint] oxyCODONE /ACETAMINOPHEN [Percocet 1 tab PO Q4HR PRN #20 tab 08/25/16 Unknown Rx 5/325] Ondansetron [Zofran Odt] 4 mg PO Q4H PRN #10 tab.rapdis 11/05/16 Unknown Rx HYDROcodone/APAP 5-325 [[place] 1 each PO Q6HR PRN #7 tablet 01/13/17 Unknown Rx 5-325 mg TAB] HYDROcodone/APAP 5-325 [[place] 1 each PO Q6HR PRN #16 tablet 01/26/17 Unknown Rx 5/325] Promethazine [Phenergan TAB] 25 mg PO Q6HR PRN #20 tab 01/26/17 Unknown Rx Allergies Allergy/AdvReac Type Severity Reaction Status Date / Time ketorolac tromethamine Allergy Severe Hives Verified 08/24/16 21:06 [From Toradol] morphine Allergy Severe Hives Verified 08/24/16 21:06 ED Review of Systems ROS: Stated complaint: BG HIGH/RT ABD PAIN/LWR BACK PAIN Other details as noted in HPI Constitutional: denies: chills, fever Eyes: denies: eye pain, eye discharge, vision change ENT: denies: ear pain, throat pain Respiratory: denies: cough, shortness of breath, wheezing Cardiovascular: denies: chest pain, palpitations Endocrine: no symptoms reported Gastrointestinal: denies: abdominal pain, nausea, diarrhea Genitourinary: denies: urgency, dysuria, discharge Musculoskeletal: denies: back pain, joint swelling, arthralgia Skin: denies: rash, lesions Neurological: denies: headache, weakness, paresthesias Psychiatric: denies: anxiety, depression Hematological/Lymphatic: denies: easy bleeding, easy bruising ED Past Medical Hx - Past Medical History Hx Diabetes: Yes Hx Deep Vein Thrombosis: Yes Hx Renal Disease: Yes (kidney stones) Hx Kidney Stones: Yes (nephrostomt tube, hydronephrosis) Hx Tuberculosis: No Additional medical history: THYROID, 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 - Surgical History Hx Cholecystectomy: Yes Additional Surgical History: X 3, nephrostomy tubes for hydronephrosis last was May 2014 - Social History Smoking Status: Never Smoker Substance Use Type: None - Medications Home Medications: Home Medications Medication Instructions Recorded Confirmed Last Taken Type Methimazole [Tapazole] 10 mg PO BID #60 tablet 01/28/16 06/10/16 1 Day Ago Rx 10 Insulin Lispro [HumaLOG VIAL] 12 units SQ TID #1 03/27/16 06/10/16 1 Day Ago Rx 8 Enoxaparin [Lovenox] 90 mg SUB-Q BID 06/10/16 06/10/16 Unknown History Insulin Glargine [Lantus VIAL] 30 unit SUB-Q QHS 06/10/16 06/10/16 Unknown History Erythromycin [Erythromycin Ophth 10 applic OP Q4HR #1 tube 08/25/16 Unknown Rx Oint] oxyCODONE /ACETAMINOPHEN [Percocet 1 tab PO Q4HR PRN #20 tab 08/25/16 Unknown Rx 5/325] Ondansetron [Zofran Odt] 4 mg PO Q4H PRN #10 tab.rapdis 11/05/16 Unknown Rx HYDROcodone/APAP 5-325 [[place] 1 each PO Q6HR PRN #7 tablet 01/13/17 Unknown Rx 5-325 mg TAB] HYDROcodone/APAP 5-325 [[place] 1 each PO Q6HR PRN #16 tablet 01/26/17 Unknown Rx 5/325] Promethazine [Phenergan TAB] 25 mg PO Q6HR PRN #20 tab 01/26/17 Unknown Rx ED Physical Exam - General Limitations: No Limitations General appearance: alert, in no apparent distress - Head Head exam: Present: atraumatic, normocephalic - Eye Eye exam: Present: normal appearance - ENT ENT exam: Present: mucous membranes moist - Neck Neck exam: Present: normal inspection - Respiratory Respiratory exam: Present: normal lung sounds bilaterally. Absent: respiratory distress - Cardiovascular Cardiovascular Exam: Present: regular rate, normal rhythm. Absent: systolic murmur, diastolic murmur, rubs, gallop - GI/Abdominal GI/Abdominal exam: Present: soft, tenderness (Patient with TTP RUQ and RLQ. No peritonitis.), normal bowel sounds - Extremities Exam Extremities exam: Present: normal inspection - Back Exam Back exam: Present: normal inspection - Neurological Exam Neurological exam: Present: alert, oriented X3 - Psychiatric Psychiatric exam: Present: normal affect, normal mood - Skin Skin exam: Present: warm, dry, intact, normal color. Absent: rash ED Course Vital Signs 01/25/17 01/25/17 01/25/17 12:57 16:40 16:43 Temperature 98.1 F Pulse Rate 109 H 70 77 Respiratory 20 20 Rate Blood Pressure 132/89 Blood Pressure 117/67 [Left] O2 Sat by Pulse 98 Oximetry 01/25/17 01/25/17 01/25/17 19:45 19:55 20:00 Temperature 98.8 F Pulse Rate 118 H Respiratory 16 16 Rate Blood Pressure 133/84 129/83 Blood Pressure 133/84 [Left] O2 Sat by Pulse 98 98 Oximetry 01/25/17 01/25/17 01/25/17 20:15 20:25 20:30 Temperature Pulse Rate Respiratory 16 Rate Blood Pressure 128/78 104/65 Blood Pressure [Left] O2 Sat by Pulse 98 Oximetry 01/25/17 01/25/17 20:45 21:29 Temperature Pulse Rate Respiratory 16 Rate Blood Pressure 121/63 Blood Pressure [Left] O2 Sat by Pulse Oximetry - Reevaluation(s) Reevaluation #1: 01/26/17 02:01 I reevaluated patient approximately 3 times after intial assessment. She was always resting comfortably in bed even prior to pain meds given. She was told that her labs had improved greatly from the hydration and a total of 20 units of insulin. ED Medical Decision Making - Lab Data Result diagrams: 01/25/17 13:08 01/26/17 00:15 Urine with ketones. - Radiology Data Radiology results: report reviewed, image reviewed NO acute changes found on the right side that would explain her pain. - Medical Decision Making Patient was given 2 L NS and given 10 units of regular insulin twice. She did well and her BMP was much improved. Patient still complained of abdominal pain which has persisteted since Tuesday. Her CT did not have an acute finding C/W her pain. She will be discharged home and may return if no better or worse. Encourged good DM diet and the use of promethazine and hydrocodone. Critical care attestation.: If time is entered above; I have spent that time in minutes in the direct care of this critically ill patient, excluding procedure time. ED Disposition Clinical Impression: Abdominal pain, generalized, Hyperglycemia due to type 1 diabetes mellitus Abdominal pain Qualifiers: Abdominal location: generalized Qualified Code(s): R10.84 - Generalized abdominal pain Disposition: - TO HOME OR SELFCARE Is pt being admited?: No Does the pt Need Aspirin: No Condition: Good Instructions: Diabetes Mellitus Type 2 in Adults (ED) Additional Instructions: If no better or worse, please return to the ED. Prescriptions: HYDROcodone/APAP 5-325 [[place] 5/325] 1 each PO Q6HR PRN #16 tablet PRN Reason: Pain Promethazine [Phenergan TAB] 25 mg PO Q6HR PRN #20 tab PRN Reason: Nausea Referrals: CHILD,EBENEZER [Other] - 3-5 Days
[2017-01-26 03:49] VITALS: BP 126/80
== END 2017-01-26 03:30 | disposition home or self-care (01) ==
LOC: ED 12:18
DX: R10.84 Generalized abdominal pain (principal); E10.65 Type 1 diabetes mellitus with hyperglycemia; I82.409 Acute embolism and thrombosis of unspecified deep veins of unspecified lower extremity; Z90.49 Acquired absence of other specified parts of digestive tract; Z79.82 Long term (current) use of aspirin; Z88.6 Allergy status to analgesic agent
CPT/HCPCS: 36415; 74177; 80048; 80053; 81001; 82805; 82962; 83690; 84703; 85025; 96361; 96374; 96375; 96376; 99284; J1170; J1200; J2175; J2405; J7030; Q9967; J1815